=== PATIENT | male | born 1990 | race Caucasian/White ===

== ENCOUNTER 2020-06-21 21:33 | Emergency (ER) | payer BC ==
[2020-06-21 22:07] LABS: HEMOGLOBIN 15.3 gm/dl (14.0-17.5); RED BLOOD COUNT 5.14 M/UL (4.20-5.50); WHITE BLOOD COUNT 5.9 K/UL (4.5-11.0)
[2020-06-21 22:28] LABS: BUN/CREATININE RATIO 16 (0-10)
== END 2020-06-22 04:10 | disposition home or self-care (01) ==
LOC: ER1 21:33
PROVIDERS: Physician Assistant
DX: N50.812 Left testicular pain (principal); R10.32 Left lower quadrant pain; F17.290 Nicotine dependence, other tobacco product, uncomplicated; Z86.16 Personal history of COVID-19; Z90.89 Acquired absence of other organs
CPT/HCPCS: 76870; 80053; 81001; 85025; 96374; 96375; 99284; J1885; J2405

== ENCOUNTER 2021-01-12 23:53 | Emergency (ER) | payer SELFPAY ==
[2021-01-13] MEDS ORDERED: EPIPEN 2-P0.3 MG/0.3 INJ (00:46)
== END 2021-01-13 01:13 | disposition home or self-care (01) ==
LOC: ER1 23:53
DX: S01.81XA Laceration without foreign body of other part of head, initial encounter (principal); W26.8XXA Contact with other sharp object(s), not elsewhere classified, initial encounter
CPT/HCPCS: 12011; 90471; 90715; 99282